=== PATIENT | male | born 1990 | race Caucasian/White ===

== ENCOUNTER 2016-11-10 14:25 | Emergency (ER) | payer OTHER ==
[2016-11-10 18:36] VITALS: BP 125/74
== END 2016-11-10 18:36 | disposition home or self-care (01) ==
LOC: ED 14:25
DX: S61.012A Laceration without foreign body of left thumb without damage to nail, initial encounter (principal); W45.8XXA Other foreign body or object entering through skin, initial encounter; Y93.89 Activity, other specified; Y92.89 Other specified places as the place of occurrence of the external cause; Y99.8 Other external cause status
CPT/HCPCS: 90715; A4570; J2001